=== PATIENT | female | born 1940 ===

== ENCOUNTER 2024-10-07 17:48 | Outpatient (RCR) | payer MEDICARE, OTHER, SELFPAY | END 2024-10-07 23:59 | disposition home or self-care (01) | LOC: RPT 17:48 | PROVIDERS: ATTENDING PHYSICIAN Internal Medicine Gastroenterology; FAMILY PHYSICIAN Internal Medicine Geriatric Medicine | DX: M62.89 Other specified disorders of muscle (principal); R14.3 Flatulence; M62.08 Separation of muscle (nontraumatic), other site; Z73.6 Limitation of activities due to disability; N39.3 Stress incontinence (female) (male); M62.81 Muscle weakness (generalized) | CPT/HCPCS: 97110; 97161; 97530 ==

== ENCOUNTER 2024-10-22 06:16 | Day surgery (SDC) | payer MEDICARE, OTHER, SELFPAY | END 2024-10-22 11:08 | disposition home or self-care (01) | LOC: GI 06:16 | PROVIDERS: ATTENDING PHYSICIAN Internal Medicine Gastroenterology | DX: R12 Heartburn (principal); K44.9 Diaphragmatic hernia without obstruction or gangrene; K31.7 Polyp of stomach and duodenum; K22.70 Barrett's esophagus without dysplasia; K31.89 Other diseases of stomach and duodenum | CPT/HCPCS: 43239; 88305; 88342 ==

== ENCOUNTER 2024-11-17 10:40 | Outpatient (RCR) | payer MEDICARE, OTHER, SELFPAY | END 2024-11-17 23:59 | disposition home or self-care (01) | LOC: RPT 10:40 | PROVIDERS: ATTENDING PHYSICIAN Internal Medicine Gastroenterology; FAMILY PHYSICIAN Internal Medicine Geriatric Medicine | DX: M62.89 Other specified disorders of muscle (principal); R14.3 Flatulence; M62.08 Separation of muscle (nontraumatic), other site; Z73.6 Limitation of activities due to disability; N39.3 Stress incontinence (female) (male); M62.81 Muscle weakness (generalized) | CPT/HCPCS: 97110; 97112; 97530 ==

== ENCOUNTER 2024-12-06 10:36 | Outpatient (RCR) | payer MEDICARE, OTHER, SELFPAY | END 2024-12-06 23:59 | disposition home or self-care (01) | LOC: RPT 10:36 | PROVIDERS: ATTENDING PHYSICIAN Internal Medicine Gastroenterology; FAMILY PHYSICIAN Internal Medicine Geriatric Medicine | DX: M62.89 Other specified disorders of muscle (principal); R14.3 Flatulence; M62.08 Separation of muscle (nontraumatic), other site; Z73.6 Limitation of activities due to disability; N39.3 Stress incontinence (female) (male); M62.81 Muscle weakness (generalized) | CPT/HCPCS: 97110; 97112 ==

== ENCOUNTER 2025-01-04 11:35 | Outpatient (RCR) | payer MEDICARE, OTHER, SELFPAY | END 2025-01-04 23:59 | disposition home or self-care (01) | LOC: RPT 11:35 | PROVIDERS: ATTENDING PHYSICIAN Internal Medicine Gastroenterology; FAMILY PHYSICIAN Internal Medicine Geriatric Medicine | DX: M62.89 Other specified disorders of muscle (principal); R14.3 Flatulence; M62.08 Separation of muscle (nontraumatic), other site; Z73.6 Limitation of activities due to disability; N39.3 Stress incontinence (female) (male); M62.81 Muscle weakness (generalized) | CPT/HCPCS: 97110; 97112; 97530 ==

== ENCOUNTER 2025-02-15 10:36 | Outpatient (RCR) | payer MEDICARE, OTHER, SELFPAY | END 2025-02-15 23:59 | disposition home or self-care (01) | LOC: RPT 10:36 | PROVIDERS: ATTENDING PHYSICIAN Internal Medicine Gastroenterology; FAMILY PHYSICIAN Internal Medicine Geriatric Medicine | DX: M62.89 Other specified disorders of muscle (principal); R14.3 Flatulence; M62.08 Separation of muscle (nontraumatic), other site; Z73.6 Limitation of activities due to disability; N39.3 Stress incontinence (female) (male); M62.81 Muscle weakness (generalized) | CPT/HCPCS: 97014; 97110; 97112; 97530 ==

== ENCOUNTER 2025-02-23 11:29 | Outpatient (RCR) | payer MEDICARE, OTHER, SELFPAY | END 2025-02-23 23:59 | disposition home or self-care (01) | LOC: RPT 11:29 | PROVIDERS: ATTENDING PHYSICIAN Internal Medicine Gastroenterology; FAMILY PHYSICIAN Internal Medicine Geriatric Medicine | DX: M62.89 Other specified disorders of muscle (principal); R14.3 Flatulence; M62.08 Separation of muscle (nontraumatic), other site; Z73.6 Limitation of activities due to disability; N39.3 Stress incontinence (female) (male); M62.81 Muscle weakness (generalized) | CPT/HCPCS: 97014; 97110; 97112; 97530 ==

== ENCOUNTER 2025-05-02 12:59 | Outpatient (RCR) | payer MEDICARE, OTHER, SELFPAY | END 2025-05-02 23:59 | disposition home or self-care (01) | LOC: RPT 12:59 | PROVIDERS: ATTENDING PHYSICIAN Internal Medicine Gastroenterology; FAMILY PHYSICIAN Internal Medicine Geriatric Medicine | DX: M62.89 Other specified disorders of muscle (principal); R14.3 Flatulence; M62.08 Separation of muscle (nontraumatic), other site; Z73.6 Limitation of activities due to disability; N39.3 Stress incontinence (female) (male); M62.81 Muscle weakness (generalized) | CPT/HCPCS: 97110; 97530 ==

== ENCOUNTER 2025-06-02 06:44 | Outpatient (RCR) | payer MEDICARE, OTHER, SELFPAY | END 2025-06-02 12:48 | disposition home or self-care (01) | LOC: RPT 06:44 | PROVIDERS: ATTENDING PHYSICIAN Internal Medicine Gastroenterology; FAMILY PHYSICIAN Internal Medicine Geriatric Medicine | DX: M62.89 Other specified disorders of muscle (principal); R14.3 Flatulence; M62.08 Separation of muscle (nontraumatic), other site; Z73.6 Limitation of activities due to disability; N39.3 Stress incontinence (female) (male); M62.81 Muscle weakness (generalized) | CPT/HCPCS: 97110; 97530 ==